=== PATIENT | female | born 1980 | race Caucasian/White ===

== ENCOUNTER 2023-07-11 17:16 | Inpatient (IN) | payer BC, MEDICAID ==
[~2023-07-11] VITALS: Ht 160 cm; Wt 63.5 kg
[2023-07-11] MEDS: CEFTRIAXONE 1 G in IV DEXTROSE 5% 50 ML IV ONE (17:30)
[2023-07-11] MEDS: ONDANSETRON 4 MG/2 ML VIAL IV ONE (17:30)
[2023-07-11] MEDS: FENTANYL CITRATE 100 MCG/2 ML AMPUL IV ONE ×3 (17:30→23:08)
[2023-07-11] MEDS: IV NORMAL SALINE 1000 ML BAG IV ONE (17:30)
[2023-07-11] MEDS: METRONIDAZOLE 500 MG/NS 100ML 100 ML IV ONE (17:30)
[2023-07-11] MEDS ORDERED: ONDANSETRON 4 MG/2 ML VIAL ONE (18:00)
[2023-07-11] MEDS ORDERED: METRONIDAZOLE 500 MG/NS 100ML 0 ML IV ONE (18:00)
[2023-07-11] MEDS ORDERED: CEFTRIAXONE 1 G VIAL ONE (18:00)
[2023-07-11] MEDS ORDERED: FENTANYL CITRATE 100 MCG/2 ML AMPUL ONE ×3 (18:01→22:57)
[2023-07-11 18:14] LABS: CALCIUM 8.3 mg/dL (8.5-10.1); CARBON DIOXIDE 24 mmol/L (21-32); CHLORIDE 101 mmol/L (98-107); CREATININE 0.6 mg/dL (0.6-1.3); GLUCOSE 98 mg/dL (74-106); POTASSIUM 3.6 mmol/L (3.5-5.1); SODIUM SERUM 136 mmol/L (136-145); UREA NITROGEN, BLOOD 20 mg/dL (7-18)
[2023-07-11 18:18] LABS: BASOPHILS # (AUTO) 0.1 K/UL (0.0-0.2); BASOPHILS % (AUTO) 0.5 % (0.0-2.0); DIFFERENTIAL COMMENT 0; LYMPHOCYTES # (AUTO) 0.3 K/uL (0.8-4.8); LYMPHOCYTES % (AUTO) 3.2 % (20.5-51.5); MEAN CORPUSCULAR HEMOGLOBIN 24.2 uug (24.7-32.8); MEAN CORPUSCULAR HGB CONC 33 g/dL (32.3-35.6); MEAN CORPUSCULAR VOLUME 72.3 fL (75.5-95.3); MONOCYTES # (AUTO) 0.6 K/uL (0.1-1.30); MONOCYTES % (AUTO) 6.2 % (0.0-11.0); NEUTROPHILS # (AUTO) 8.5 K/uL (1.8-8.9); NEUTROPHILS % (AUTO) 90.1 % (38.5-71.5); PLATELET COUNT (AUTO) 121 K/uL (179-408); RED BLOOD CELL COUNT(AUTO) 4.56 MIL/uL (3.63-4.92); RED CELL DISTRIBUTION WIDTH 23.8 % (12.3-17.7); WHITE BLOOD COUNT (AUTO) 9.5 K/uL (3.8-11.8)
[2023-07-11 18:19] LABS: *BLOOD, URINE 3+ (NEGATIVE); *CLARITY,URINE SLIGHTLY CLOUDY (CLEAR); *COLOR,URINE DARK YELLOW (YELLOW); *KETONES,URINE NEGATIVE (NEGATIVE); *PROTEIN,URINE TRACE (NEGATIVE); *UROBILINOGEN,URINE 0.2 E.U./dl (NORMAL); LEUKOCYTE ESTERASE ,URINE NEGATIVE (NEGATIVE); NITRITE, URINE NEGATIVE (NEGATIVE); UGLUCOSE NEGATIVE (NEGATIVE)
[2023-07-11 18:22] LABS: ALANINE AMINOTRANSFERASE 205 U/L (14-59); ALKALINE PHOSPHATASE 230 U/L (50-136); ASPARTATE AMINOTRANSFERASE 171 U/L (15-37); BILIRUBIN,DIRECT 0.5 mg/dL (0.0-0.2); TOTAL PROTEIN, SERUM 5.7 g/dL (6.4-8.2)
[2023-07-11 18:30] LABS: *BILIRUBIN,URIN 1+ (NEGATIVE)
[2023-07-11 18:35] LABS: ALBUMIN < 0.6 g/dL (3.4-5.0)
[2023-07-11] MEDS ORDERED: KETOROLAC TROMETHAMINE 15 MG INJ ONE (19:31)
[2023-07-11] MEDS: KETOROLAC TROMETHAMINE 15 MG INJ IVP ONE (19:50)
[2023-07-11 23:24] LABS: RBC,URINE 50-80 /HPF (0-3)
[2023-07-11 23:25] LABS: BACTERIA,URINE MODERATE /HPF (NONE SEEN); SQUAMOUS EPITHELIAL CELL,UR MODERATE /HPF (NONE SEEN); WBC,URINE NONE SEEN /HPF (0-3)
[2023-07-12] MEDS ORDERED: KETOROLAC TROMETHAMINE 15 MG INJ ONE (00:33)
[2023-07-12] MEDS: KETOROLAC TROMETHAMINE 15 MG INJ IVP ONE (00:37)
[2023-07-12 01:25] VITALS: BP 111/81; TEMP 98; O2SAT 96
[2023-07-12] MEDS: KETOROLAC TROMETHAMINE 15 MG INJ IVP PRN (02:04)
[2023-07-12] MEDS ORDERED: ACETAMINOPHEN 325 MG TABLET PO PRN (02:15)
[2023-07-12] MEDS ORDERED: ONDANSETRON 4 MG/2 ML VIAL IV PRN (02:15)
[2023-07-12] MEDS ORDERED: ZOLPIDEM 5 MG TABLET PO PRN (02:30)
[2023-07-12] MEDS ORDERED: REMEDY ESSENTIAL ZINC PASTE 113 GM TOP PRN (03:15)
[2023-07-12] MEDS: TRAMADOL HCL 50 MG TABLET PO PRN (05:40)
[2023-07-12] MEDS: PANTOPRAZOLE SODIUM 40 MG TABLET.DR PO SCH (07:04)
[2023-07-12 07:14] LABS: BASOPHILS % (AUTO) 0.2 % (0.0-2.0); HEMATOCRIT 30.1 % (31.2-41.9); HEMOGLOBIN 10.2 g/dL (10.9-14.3); LYMPHOCYTES # (AUTO) 0.2 K/uL (0.8-4.8); LYMPHOCYTES % (AUTO) 1.8 % (20.5-51.5); MEAN CORPUSCULAR HEMOGLOBIN 24.4 uug (24.7-32.8); MEAN CORPUSCULAR HGB CONC 34 g/dL (32.3-35.6); MONOCYTES # (AUTO) 0.5 K/uL (0.1-1.30); MONOCYTES % (AUTO) 4.1 % (0.0-11.0); NEUTROPHILS # (AUTO) 11.2 K/uL (1.8-8.9); NEUTROPHILS % (AUTO) 93.9 % (38.5-71.5); PLATELET COUNT (AUTO) 97 K/uL (179-408); RED BLOOD CELL COUNT(AUTO) 4.18 MIL/uL (3.63-4.92); RED CELL DISTRIBUTION WIDTH 23.5 % (12.3-17.7); WHITE BLOOD COUNT (AUTO) 11.9 K/uL (3.8-11.8)
[2023-07-12 07:16] LABS: DIFFERENTIAL COMMENT 1
[2023-07-12 07:35] LABS: IRON, SERUM 13 ug/dL (50-175)
[2023-07-12 07:38] LABS: ALANINE AMINOTRANSFERASE 181 U/L (14-59); ALBUMIN 1.9 g/dL (3.4-5.0); ALKALINE PHOSPHATASE 210 U/L (50-136); ASPARTATE AMINOTRANSFERASE 174 U/L (15-37); BILIRUBIN,TOTAL 1.3 mg/dL (0.2-1.0); CARBON DIOXIDE 25 mmol/L (21-32); CHLORIDE 104 mmol/L (98-107); CREATININE 0.5 mg/dL (0.6-1.3); GLUCOSE 117 mg/dL (74-106); MAGNESIUM 1.9 mg/dL (1.8-2.4); PHOSPHOROUS 3.3 mg/dL (2.5-4.9); POTASSIUM 3.8 mmol/L (3.5-5.1); SODIUM SERUM 138 mmol/L (136-145); TOTAL PROTEIN, SERUM 5.1 g/dL (6.4-8.2); UREA NITROGEN, BLOOD 16 mg/dL (7-18)
[2023-07-12 08:00] VITALS: BP 129/76; TEMP 97.6; O2SAT 97
[2023-07-12] MEDS ORDERED: DEXA4TAB PO (13:54)
[2023-07-12] MEDS ORDERED: OMEP20CA15 PO (13:55)
[2023-07-12 20:00] VITALS: BP 121/81; TEMP 98; O2SAT 97
[2023-07-13] MEDS ORDERED: PANTOPRAZOLE SODIUM 40 MG TABLET.DR PO SCH (07:00)
[2023-07-13] MEDS ORDERED: DEXAMETHASONE 4 MG TABLET PO SCH (09:00)
[2023-07-13] MEDS ORDERED: TRAM50TA2 PO (15:03)
== END 2023-07-13 15:45 | disposition home or self-care (01) | DRG 861 ==
LOC: ER 17:17 → MEDSURG3 21:00
PROVIDERS: ADMIT Internal Medicine; ATTEND Nurse Practitioner Acute Care
DX: G89.3 Neoplasm related pain (acute) (chronic) (principal); R18.8 Other ascites; C17.0 Malignant neoplasm of duodenum; C78.7 Secondary malignant neoplasm of liver and intrahepatic bile duct; E88.09 Other disorders of plasma-protein metabolism, not elsewhere classified; C79.31 Secondary malignant neoplasm of brain; K59.00 Constipation, unspecified; R10.84 Generalized abdominal pain; Z92.3 Personal history of irradiation; R63.0 Anorexia; Z68.24 Body mass index [BMI] 24.0-24.9, adult; R53.1 Weakness; R74.01 Elevation of levels of liver transaminase levels
CPT/HCPCS: 36415; 71045; 83550; 83605; 83690; 83735; 84100; 84484; 85025; 85730; 86850; 86900; 86901; 87040; 93005; A4663; G0378; J0696; J1885; J2405; J3010; J3490; J7040